=== PATIENT | male | born 1945 | race Caucasian/White ===

== ENCOUNTER 2017-07-26 06:29 | Day surgery (SDC) | payer MEDICARE, BC ==
[~2017-07-26] VITALS: Ht 188 cm; Wt 122.0 kg
[~2017-07-26 06:29] MED LIST: ALLO300 PO; AMLO10 PO; BUME1 PO; BYDUREON2 MG; CARV6.25 PO; CEPH500 PO; CLON.1 PO; Coreg12.5 MG PO; DIPH50 PO; ELIQUIS5 MG PO; ENTRESTO 24 MG1 EACH PO; FAMO20 PO; HYDCHL25 PO; Humalog Mi100 UNIT/5; METF500C PO; PIOG15 PO; POTCHL20ER PO; Pravastatin Sod40 MG PO; RAMI5 PO; TERB250; TRAM50 PO
== END 2017-07-26 14:00 | disposition home or self-care (01) ==
LOC: MHTC 06:29
PROC: 4A023N7 Measurement of Cardiac Sampling and Pressure, Left Heart, Percutaneous Approach (ICD-10-PCS; principal; 2017-07-26)
PROC: B211YZZ Fluoroscopy of Multiple Coronary Arteries using Other Contrast (ICD-10-PCS; principal; 2017-07-26)
DX: I25.10 Atherosclerotic heart disease of native coronary artery without angina pectoris (principal); I42.0 Dilated cardiomyopathy; I48.2 Chronic atrial fibrillation; E78.5 Hyperlipidemia, unspecified; G47.33 Obstructive sleep apnea (adult) (pediatric); E11.22 Type 2 diabetes mellitus with diabetic chronic kidney disease; I13.0 Hypertensive heart and chronic kidney disease with heart failure and stage 1 through stage 4 chronic kidney disease, or unspecified chronic kidney disease; N18.9 Chronic kidney disease, unspecified; I50.9 Heart failure, unspecified
CPT/HCPCS: 82947; 93458; 99152; 99153; C1769; C1894; J1200; J1644; J2250; J3010; J7030; Q9967

== ENCOUNTER 2017-08-16 11:50 | Day surgery (SDC) | payer MEDICARE, BC ==
[~2017-08-16] VITALS: Ht 188 cm; Wt 127.0 kg
[2017-08-16 13:05] LABS: BASOPHILS ABSOLUTE AUTO 0.04 K/mm3 (0.00-0.23); BASOPHILS PERCENT AUTO 1 % (0-2); EOSINOPHILS ABSOLUTE AUTO 0.13 K/mm3 (0.00-0.68); EOSINOPHILS PERCENT AUTO 2 % (0-6); Hematocrit 48.6 % (37.0-53.0); Hemoglobin 15.4 g/dL (13.5-17.5); IMMATURE GRAN ABSOLUTE AUTO 0.04 K/mm3 (0.00-0.10); IMMATURE GRAN PERCENT AUTO 1 % (0-1); LYMPHOCYTES ABSOLUTE AUTO 1.74 K/mm3 (0.84-5.20); LYMPHOCYTES PERCENT AUTO 22 % (21-46); MONOCYTES ABSOLUTE AUTO 0.74 K/mm3 (0.16-1.47); MONOCYTES PERCENT AUTO 9 % (4-13); Mean Corpuscular HGB 29.7 pg (26.0-34.0); Mean Corpuscular HGB Conc 31.7 g/dL (31.5-36.5); Mean Corpuscular Volume 94 fL (80-100); Mean Platelet Volume 12.3 fL (9.1-12.4); NEUTROPHILS ABSOLUTE AUTO 5.41 K/mm3 (1.96-9.15); NEUTROPHILS PERCENT AUTO 67 % (41-73); Platelet Count 144 K/mm3 (150-400); RDW Standard Deviation 44.8 fL (35.1-46.3); Red Blood Cell Count 5.19 M/mm3 (4.30-5.90)
[2017-08-16] MEDS ORDERED: SPIR25 PO (13:14)
[2017-08-16 13:31] LABS: Anion Gap 6 mmol/L (6-16); Blood Urea Nitrogen 26 mg/dL (8-24); Bun/Creatinine Ratio 23.4 (12.0-20.0); CO2, Blood 32 mmol/L (21-32); Calcium, Blood 9.1 mg/dL (8.5-10.1); Chloride, Blood 104 mmol/L (98-108); Creatinine, Blood 1.11 mg/dL (0.60-1.20); Glomerular Filtration Rate >60 (60-); Glucose, Blood 74 mg/dL (70-99); Potassium, Blood 4.3 mmol/L (3.5-5.5); Sodium, Blood 142 mmol/L (136-145)
[2017-08-16] MEDS ORDERED: HYDR1TAB94 PO (16:10)
== END 2017-08-16 16:30 | disposition home or self-care (01) ==
LOC: MHTC 11:50
PROVIDERS: Internal Medicine Clinical Cardiac Electrophysiology
PROC: 02HK3KZ Insertion of Defibrillator Lead into Right Ventricle, Percutaneous Approach (ICD-10-PCS; principal; 2017-08-16)
PROC: 0JH608Z Insertion of Defibrillator Generator into Chest Subcutaneous Tissue and Fascia, Open Approach (ICD-10-PCS; principal; 2017-08-16)
DX: I42.0 Dilated cardiomyopathy (principal); I50.9 Heart failure, unspecified; I11.0 Hypertensive heart disease with heart failure; E11.22 Type 2 diabetes mellitus with diabetic chronic kidney disease; I13.0 Hypertensive heart and chronic kidney disease with heart failure and stage 1 through stage 4 chronic kidney disease, or unspecified chronic kidney disease; N18.9 Chronic kidney disease, unspecified; G47.33 Obstructive sleep apnea (adult) (pediatric); M10.9 Gout, unspecified; I48.1 Persistent atrial fibrillation; Z79.84 Long term (current) use of oral hypoglycemic drugs; Z79.4 Long term (current) use of insulin; Z79.899 Other long term (current) drug therapy; Z79.01 Long term (current) use of anticoagulants
CPT/HCPCS: 33249; 36415; 71046; 80048; 82947; 85025; 99152; 99153; C1722; C1777; J0690; J1200; J1644; J2250; J2405; J3010; J7030; J7040; Q9967

== ENCOUNTER 2018-07-10 17:31 | Emergency (ER) | payer MEDICARE, BC ==
[~2018-07-10] VITALS: Ht 188 cm; Wt 136.1 kg
[~2018-07-10 17:31] MED LIST changes: -BYDUREON2 MG; +BYDUREON2 MG INJ; +HYDR1TAB94 PO; +SPIR25 PO
[2018-07-10 18:42] LABS: BASOPHILS ABSOLUTE AUTO 0.03 K/mm3 (0.00-0.23); BASOPHILS PERCENT AUTO 0 % (0-2); EOSINOPHILS ABSOLUTE AUTO 0.13 K/mm3 (0.00-0.68); EOSINOPHILS PERCENT AUTO 2 % (0-6); Hematocrit 39.2 % (37.0-53.0); Hemoglobin 12.6 g/dL (13.5-17.5); IMMATURE GRAN ABSOLUTE AUTO 0.05 K/mm3 (0.00-0.10); IMMATURE GRAN PERCENT AUTO 1 % (0-1); LYMPHOCYTES ABSOLUTE AUTO 1.27 K/mm3 (0.84-5.20); LYMPHOCYTES PERCENT AUTO 15 % (21-46); MONOCYTES ABSOLUTE AUTO 0.66 K/mm3 (0.16-1.47); MONOCYTES PERCENT AUTO 8 % (4-13); Mean Corpuscular HGB 30.5 pg (26.0-34.0); Mean Corpuscular HGB Conc 32.1 g/dL (31.5-36.5); Mean Corpuscular Volume 95 fL (80-100); Mean Platelet Volume 11.6 fL (9.1-12.4); NEUTROPHILS ABSOLUTE AUTO 6.33 K/mm3 (1.96-9.15); NEUTROPHILS PERCENT AUTO 75 % (41-73); Platelet Count 212 K/mm3 (150-400); RDW Coefficient Variation 12.6 % (11.7-14.2); RDW Standard Deviation 43.8 fL (35.1-46.3); Red Blood Cell Count 4.13 M/mm3 (4.30-5.90); White Blood Cell Count 8.47 K/mm3 (4.00-11.30)
[2018-07-10 19:00] LABS: Alanine Aminotransfer (ALT/SGP 14 U/L (12-78); Albumin, Blood 3.2 g/dL (3.4-5.0); Albumin/Globulin Ratio 0.8 (0.8-1.8); Alk Phos 81 U/L (50-136); Anion Gap 4 mmol/L (6-16); Aspartate Aminotrans (AST/SGOT 15 U/L (12-37); Blood Urea Nitrogen 21 mg/dL (8-24); Bun/Creatinine Ratio 19.4 (12.0-20.0); CO2, Blood 31 mmol/L (21-32); Calcium, Blood 8.6 mg/dL (8.5-10.1); Chloride, Blood 103 mmol/L (98-108); Creatinine, Blood 1.08 mg/dL (0.60-1.20); Globulin, Blood 3.9 g/dL (2.2-4.0); Glomerular Filtration Rate >60 (60-); Glucose, Blood 184 mg/dL (70-99); Potassium, Blood 4.9 mmol/L (3.5-5.5); Sodium, Blood 138 mmol/L (136-145); Total Protein, Blood 7.1 g/dL (6.4-8.2)
[2018-07-10 20:21] LABS: Source, Urine Clean Catch
[2018-07-10 20:31] LABS: Appearance, Urine Clear (Clear); Bilirubin, Urine Neg (Neg); Blood, Urine Neg (Neg); Color, Urine Yellow (P-Yellow); Glucose Qualitative, Urine Neg (Neg); Ketones, Urine Neg (Neg); Leukocyte Esterase, Urine 1+ (Neg); Nitrite, Urine Neg (Neg); Protein, Urine 1+ (Neg); Urobilinogen, Urine 1+ (Normal)
[2018-07-10 20:43] LABS: Bacteria Rare /hpf; Red Blood Cells, Urine Not Seen /hpf (0-2); Squamous Epithelial Cells Rare /hpf (Few); White Blood Cells, Urine 0-2 /hpf (0-5)
[2018-07-10] MEDS ORDERED: BACL10 PO (21:06)
[2018-07-10] MEDS ORDERED: HYDR1TAB94 PO (21:06)
== END 2018-07-10 22:11 | disposition home or self-care (01) ==
LOC: ER 17:31
PROVIDERS: Physician Assistant
DX: R82.998 Other abnormal findings in urine (principal); Z53.33 Arthroscopic surgical procedure converted to open procedure; Z79.899 Other long term (current) drug therapy; Z79.4 Long term (current) use of insulin; E11.9 Type 2 diabetes mellitus without complications; I10 Essential (primary) hypertension; I48.91 Unspecified atrial fibrillation
CPT/HCPCS: 36415; 80053; 81001; 83690; 85025; 87086; 99283

== ENCOUNTER 2018-07-12 09:17 | Emergency (ER) | payer MEDICARE, BC ==
[~2018-07-12] VITALS: Ht 188 cm; Wt 136.1 kg
[~2018-07-12 09:17] MED LIST changes: +BACL10 PO
[2018-07-12 10:01] LABS: BASOPHILS ABSOLUTE AUTO 0.03 K/mm3 (0.00-0.23); BASOPHILS PERCENT AUTO 0 % (0-2); EOSINOPHILS PERCENT AUTO 1 % (0-6); Hemoglobin 11.8 g/dL (13.5-17.5); IMMATURE GRAN ABSOLUTE AUTO 0.07 K/mm3 (0.00-0.10); IMMATURE GRAN PERCENT AUTO 1 % (0-1); LYMPHOCYTES PERCENT AUTO 11 % (21-46); MONOCYTES ABSOLUTE AUTO 0.54 K/mm3 (0.16-1.47); MONOCYTES PERCENT AUTO 6 % (4-13); Mean Corpuscular HGB 30.4 pg (26.0-34.0); Mean Corpuscular HGB Conc 31.9 g/dL (31.5-36.5); Mean Corpuscular Volume 95 fL (80-100); Mean Platelet Volume 11.7 fL (9.1-12.4); NEUTROPHILS ABSOLUTE AUTO 7.28 K/mm3 (1.96-9.15); NEUTROPHILS PERCENT AUTO 81 % (41-73); Platelet Count 206 K/mm3 (150-400); RDW Coefficient Variation 12.8 % (11.7-14.2); RDW Standard Deviation 43.8 fL (35.1-46.3); Red Blood Cell Count 3.88 M/mm3 (4.30-5.90); White Blood Cell Count 9.02 K/mm3 (4.00-11.30)
[2018-07-12 10:28] LABS: Albumin/Globulin Ratio 0.9 (0.8-1.8); Bilirubin, Total 1.1 mg/dL (0.1-1.0); Bun/Creatinine Ratio 18.5 (12.0-20.0); Calcium, Blood 8.5 mg/dL (8.5-10.1); Creatinine, Blood 1.51 mg/dL (0.60-1.20); Globulin, Blood 3.3 g/dL (2.2-4.0); Potassium, Blood 4.7 mmol/L (3.5-5.5); Total Protein, Blood 6.3 g/dL (6.4-8.2)
== END 2018-07-12 11:15 | disposition home or self-care (01) ==
LOC: ER 09:17
PROVIDERS: Emergency Medicine
DX: R42 Dizziness and giddiness (principal); E86.0 Dehydration; R11.0 Nausea; N28.9 Disorder of kidney and ureter, unspecified; T40.605A Adverse effect of unspecified narcotics, initial encounter; T42.8X5A Adverse effect of antiparkinsonism drugs and other central muscle-tone depressants, initial encounter; E11.9 Type 2 diabetes mellitus without complications; I10 Essential (primary) hypertension; I48.91 Unspecified atrial fibrillation; Z79.899 Other long term (current) drug therapy; Z79.84 Long term (current) use of oral hypoglycemic drugs; Z79.4 Long term (current) use of insulin
CPT/HCPCS: 36415; 80053; 83690; 84484; 85025; 93005; 93010; 96361; 96374; 99284-25; J2405; J7030

== ENCOUNTER 2018-12-02 11:35 | Observation (INO) | payer MEDICARE, BC ==
[~2018-12-02] VITALS: Ht 188 cm; Wt 127.0 kg
[~2018-12-02 11:35] MED LIST changes: -BUME1 PO; +BUME2 PO; -BYDUREON2 MG INJ; +CARV25 PO; -CARV6.25 PO; -ENTRESTO 24 MG1 EACH PO; +ENTRESTO 97 MG1 EACH PO; -Humalog Mi100 UNIT/5; +Humalog Mi100 UNIT/5 SC; +METF500 PO; -METF500C PO
[2018-12-02 12:06] LABS: BASOPHILS ABSOLUTE AUTO 0.03 K/mm3 (0.00-0.23); BASOPHILS PERCENT AUTO 0 % (0-2); EOSINOPHILS ABSOLUTE AUTO 0.17 K/mm3 (0.00-0.68); EOSINOPHILS PERCENT AUTO 2 % (0-6); Hematocrit 46.1 % (37.0-53.0); Hemoglobin 15.2 g/dL (13.5-17.5); IMMATURE GRAN ABSOLUTE AUTO 0.09 K/mm3 (0.00-0.10); IMMATURE GRAN PERCENT AUTO 1 % (0-1); LYMPHOCYTES ABSOLUTE AUTO 1.71 K/mm3 (0.84-5.20); LYMPHOCYTES PERCENT AUTO 15 % (21-46); MONOCYTES ABSOLUTE AUTO 0.97 K/mm3 (0.16-1.47); MONOCYTES PERCENT AUTO 9 % (4-13); Mean Corpuscular HGB 29.3 pg (26.0-34.0); Mean Corpuscular Volume 89 fL (80-100); NEUTROPHILS ABSOLUTE AUTO 8.45 K/mm3 (1.96-9.15); NEUTROPHILS PERCENT AUTO 74 % (41-73); Platelet Count 158 K/mm3 (150-400); RDW Standard Deviation 45.3 fL (35.1-46.3); Red Blood Cell Count 5.19 M/mm3 (4.30-5.90); White Blood Cell Count 11.42 K/mm3 (4.00-11.30)
[2018-12-02 12:14] LABS: Mean Platelet Volume 13.1 fL (9.1-12.4)
[2018-12-02 12:19] LABS: Alanine Aminotransfer (ALT/SGP 17 U/L (12-78); Albumin, Blood 3.5 g/dL (3.4-5.0); Albumin/Globulin Ratio 1.1 (0.8-1.8); Alk Phos 115 U/L (50-136); Anion Gap 8 mmol/L (6-16); Aspartate Aminotrans (AST/SGOT 9 U/L (12-37); Blood Urea Nitrogen 80 mg/dL (8-24); Bun/Creatinine Ratio 30.8 (12.0-20.0); CO2, Blood 39 mmol/L (21-32); Calcium, Blood 8.4 mg/dL (8.5-10.1); Chloride, Blood 87 mmol/L (98-108); Globulin, Blood 3.3 g/dL (2.2-4.0); Glomerular Filtration Rate 26 (60-); Glucose, Blood 308 mg/dL (70-99); Potassium, Blood 3.1 mmol/L (3.5-5.5); Sodium, Blood 134 mmol/L (136-145); Total Protein, Blood 6.8 g/dL (6.4-8.2); Troponin I <0.015 ng/mL (0.000-0.040)
[2018-12-02] MEDS ORDERED: METO2.5 PO (14:45)
[2018-12-02] MEDS ORDERED: BYDUREON B2 MG/0.85 SC (14:55)
[2018-12-02] MEDS ORDERED: Vitamin D2000 UNIT PO (16:18)
[2018-12-02] MEDS ORDERED: CENTRUM SILVER1 EAC4 PO (16:18)
[2018-12-02] MEDS ORDERED: ASPI325EC PO (16:19)
[2018-12-02 18:18] LABS: Magnesium, Blood 2.5 mg/dL (1.6-2.4); Potassium, Blood 3.4 mmol/L (3.5-5.5)
--- NOTE | 2018-12-02 19:27 | NUR ---
SHIFT SUMMARY PT HAS HAD NO COMPLAINTS THIS SHIFT. PT HAS PRODUCTIVE COUGH AND ON 2L OXYGEN VIA NC. PT AMBULATORY IN ROOM. NO ACUTE DISTRESS. REPORT GIVEN TO PJ ROSADO. CALL LIGHT IN REACH.
[2018-12-02 19:43] LABS: Adenovirus Not Detected (NOT DETECT); Bordetella pertussis Not Detected (NOT DETECT); Chlamydophila pneumoniae Not Detected (NOT DETECT); Coronavirus 229E Not Detected (NOT DETECT); Coronavirus HKU1 Not Detected (NOT DETECT); Coronavirus NL63 Not Detected (NOT DETECT); Coronavirus OC43 Not Detected (NOT DETECT); Human Metapneumovirus Not Detected (NOT DETECT); Human Rhinovirus/Enterovirus Not Detected (NOT DETECT); Influenza A Not Detected (NOT DETECT); Influenza A/2009-H1 Not Detected (NOT DETECT); Influenza A/H1 Not Detected (NOT DETECT); Influenza A/H3 Not Detected (NOT DETECT); Influenza B Not Detected (NOT DETECT); Mycoplasma pneumoniae Not Detected (NOT DETECT); Parainfluenza Virus 1 Not Detected (NOT DETECT); Parainfluenza Virus 2 Not Detected (NOT DETECT); Parainfluenza Virus 3 Not Detected (NOT DETECT); Parainfluenza Virus 4 Not Detected (NOT DETECT); Respiratory Syncytial Virus Not Detected (NOT DETECT)
[2018-12-02] MEDS ORDERED: BENZ100A PO (20:09)
[2018-12-02] MEDS ORDERED: METPRE4DP PO (20:10)
[2018-12-03 05:09] LABS: Hematocrit 49.6 % (37.0-53.0); Hemoglobin 15.7 g/dL (13.5-17.5)
[2018-12-03 05:37] LABS: Magnesium, Blood 2.8 mg/dL (1.6-2.4)
--- NOTE | 2018-12-03 05:39 | NUR ---
SHIFT SUMMARY PT STATES HE SLEPT OFF AND ON DURING THE NIGHT. OXYGEN REMAINS ON PER NC AT 2L. PT OFFERS NO C/O'S. IVF'S INFUSING PER PUMP WITHOUT DIFFICULTY. PT ALERT AND ORIENTED. NO ACUTE EVENTS OVER NIGHT, WILL CONTINUE TO MONITOR.
[2018-12-03 05:40] LABS: Albumin, Blood 3.5 g/dL (3.4-5.0); Anion Gap 4 mmol/L (6-16); Blood Urea Nitrogen 70 mg/dL (8-24); CO2, Blood 42 mmol/L (21-32); Calcium, Blood 8.8 mg/dL (8.5-10.1); Chloride, Blood 93 mmol/L (98-108); Creatinine, Blood 1.84 mg/dL (0.60-1.20); Glomerular Filtration Rate 38 (60-); Glucose, Blood 103 mg/dL (70-99); Phosphorus, Blood 4.8 mg/dL (2.5-4.9); Potassium, Blood 3.1 mmol/L (3.5-5.5); Sodium, Blood 139 mmol/L (136-145)
--- NOTE | 2018-12-03 14:31 | NUR ---
D/C INSTRUCTIONS PROVIDED AND EXPLAINED TO PT. IV AND TELE REMOVED. PT D/C VIA AMBULATION WITH SPOUSE.
== END 2018-12-03 14:00 | disposition home or self-care (01) ==
LOC: ER 11:35 → MEDS 11:36 → ER 14:38 → MEDS 14:38
PROVIDERS: Emergency Medicine; Internal Medicine Nephrology; ADMIT Family Medicine
DX: N17.9 Acute kidney failure, unspecified (principal); I13.0 Hypertensive heart and chronic kidney disease with heart failure and stage 1 through stage 4 chronic kidney disease, or unspecified chronic kidney disease; I50.42 Chronic combined systolic (congestive) and diastolic (congestive) heart failure; E11.22 Type 2 diabetes mellitus with diabetic chronic kidney disease; N18.3 Chronic kidney disease, stage 3 (moderate); I95.9 Hypotension, unspecified; E86.9 Volume depletion, unspecified; E87.6 Hypokalemia; M19.90 Unspecified osteoarthritis, unspecified site; E83.41 Hypermagnesemia; G47.30 Sleep apnea, unspecified; E78.5 Hyperlipidemia, unspecified; E87.1 Hypo-osmolality and hyponatremia; E11.65 Type 2 diabetes mellitus with hyperglycemia; E66.9 Obesity, unspecified; D72.829 Elevated white blood cell count, unspecified; M10.9 Gout, unspecified
CPT/HCPCS: 36415; 71046; 74150; 76770; 80053; 80069; 82947; 83735; 83880; 84132; 84484; 85014; 85018; 85025; 87070; 87077; 87185; 87205; 87486; 87581; 87633; 87798; 93005; 93010; 94760; 96360; 96361; 96372-59; 99285-25; G0378; J1644; J1815; J3480; J7030

== ENCOUNTER 2021-11-15 11:59 | Observation (INO) | payer MEDICARE, BC ==
[~2021-11-15] VITALS: Ht 188 cm; Wt 120.9 kg
[~2021-11-15 11:59] MED LIST changes: +ASPI325EC PO; +BENZ100A PO; +BYDUREON B2 MG/0.85 SC; +CENTRUM SILVER1 EAC2 PO; +METO2.5 PO; +METPRE4DP PO; +Vitamin D2000 UNIT PO
[2021-11-15 12:29] LABS: BASOPHILS ABSOLUTE AUTO 0.03 K/mm3 (0.00-0.23); BASOPHILS PERCENT AUTO 0 % (0-2); EOSINOPHILS ABSOLUTE AUTO 0.04 K/mm3 (0.00-0.68); EOSINOPHILS PERCENT AUTO 0 % (0-6); Hematocrit 52.8 % (37.0-53.0); Hemoglobin 17.5 g/dL (13.5-17.5); IMMATURE GRAN ABSOLUTE AUTO 0.06 K/mm3 (0.00-0.10); IMMATURE GRAN PERCENT AUTO 1 % (0-1); LYMPHOCYTES PERCENT AUTO 13 % (21-46); MONOCYTES ABSOLUTE AUTO 0.45 K/mm3 (0.16-1.47); MONOCYTES PERCENT AUTO 5 % (4-13); Mean Corpuscular HGB 30.4 pg (26.0-34.0); Mean Corpuscular HGB Conc 33.1 g/dL (31.5-36.5); Mean Corpuscular Volume 92 fL (80-100); Mean Platelet Volume 12.8 fL (9.1-12.4); NEUTROPHILS ABSOLUTE AUTO 7.26 K/mm3 (1.96-9.15); NEUTROPHILS PERCENT AUTO 80 % (41-73); Platelet Count 132 K/mm3 (150-400); RDW Coefficient Variation 13.1 % (11.7-14.2); RDW Standard Deviation 43.9 fL (35.1-46.3); Red Blood Cell Count 5.76 M/mm3 (4.30-5.90); White Blood Cell Count 9.04 K/mm3 (4.00-11.30)
[2021-11-15 13:02] LABS: Albumin, Blood 3.4 g/dL (3.4-5.0); Bilirubin, Total 1.3 mg/dL (0.1-1.0); Bun/Creatinine Ratio 16.8 (12.0-20.0); Calcium, Blood 8.8 mg/dL (8.5-10.1); Creatinine, Blood 1.25 mg/dL (0.60-1.20); Globulin, Blood 3.3 g/dL (2.2-4.0); Potassium, Blood 3.4 mmol/L (3.5-5.5); Total Protein, Blood 6.7 g/dL (6.4-8.2)
--- NOTE | 2021-11-15 16:57 | NUR ---
Echocardiogram completed.
--- NOTE | 2021-11-15 19:22 | NUR ---
Patient admitted from the er this evening. He is accompanied by his . He'd been experiencing vertigo x 3 days and had left facial droop. CT shows no acute event. They are looking at possible subacute bleed. Echo was done in the ER right before transfer to the floor. Patient has a history of diabetes and has blood sugar ac and hs. He is alert and orientated. Patient has had N &V, with just a little return in the emesis bag. weight was 120.9kg at admit. Over the past three months he has intentionally lost weight. He does have a history of skin cancer with multiple melanoma removed. Medications will have to be reconcilled tomorrow, after a new list is faxed from the patients pharmacy. Patient did not take long acting insulin today at 1600. He states he normally doesn't use this, and his sugar was 160- covered with one unit of sliding scale regular, but with the patients nausea and not eating much, the long acting was held.
[2021-11-15] MEDS ORDERED: BYDUREON B2 MG/0.81 SC (20:18)
[2021-11-15] MEDS ORDERED: METO2.5 PO (20:19)
[2021-11-15] MEDS ORDERED: BUMETANIDE2 M6 PO (20:20)
[2021-11-15] MEDS ORDERED: METF500 PO (20:20)
[2021-11-15] MEDS ORDERED: JARDIANCE10 MG PO (20:21)
--- NOTE | 2021-11-16 03:51 | NUR ---
SHIFT SUMMARY REPORTS DIZZINESS WITH HEAD MOVEMENT TO THE SIDE BEGINNING OF SHIFT. SCHEDULE ANTIVERT 25 MG GIVEN PER EMAR. AXOX 4 AND ONE ASSIST TO BSC. ON TELEMETRY NSR 93. NS INFUSED @ 75mL/HR X ONE 500 mL BAG. DENIES PAIN, SOB, AND N/V. PIV REMAINS INTACT. VSS/AFEBRILE. ABLE TO SLEEP MOST OF THE SHIFT. CALL LIGHT IN REACH. BED IN LOWEST POSITION. WILL CONTINUE TO MONITOR UNTIL DAY SHIFT NURSE ASSUMES CARE.
[2021-11-16 09:38] LABS: Bun/Creatinine Ratio 18.2 (12.0-20.0); Calcium, Blood 8.8 mg/dL (8.5-10.1); Creatinine, Blood 1.1 mg/dL (0.60-1.20); Potassium, Blood 4.2 mmol/L (3.5-5.5)
[2021-11-16] MEDS ORDERED: SPIR25 PO (11:05)
[2021-11-16] MEDS ORDERED: HUMALOG MI100 UNIT/2 SC ×2 (11:08)
[2021-11-16] MEDS ORDERED: MECL25 PO (14:07)
--- NOTE | 2021-11-16 14:27 | NUR ---
PATIENT D/C'D TO HOME WITH HOME HEALTH. DC INSTRUCTIONS AND EDUCATION DISCUSSED WITH PATIENT AND COPY PROVIDED. PATIENT DENIES ANY FURTHER QUESTIONS OR CONCERNS. APPOINTMENT ALREADY SCHEULED FOR NEXT WEEK WITH DR. MISTRY. RX MEDICATIONS SENT TO [facility].
== END 2021-11-16 14:24 | disposition home health service (06) ==
LOC: ER 11:59 → MEDS 12:00
PROVIDERS: Student in an Organized Health Care Education/Training Program; ADMIT Hospitalist
DX: I63.233 Cerebral infarction due to unspecified occlusion or stenosis of bilateral carotid arteries (principal); E11.22 Type 2 diabetes mellitus with diabetic chronic kidney disease; I13.10 Hypertensive heart and chronic kidney disease without heart failure, with stage 1 through stage 4 chronic kidney disease, or unspecified chronic kidney disease; I48.20 Chronic atrial fibrillation, unspecified; I50.22 Chronic systolic (congestive) heart failure; Z79.4 Long term (current) use of insulin; N18.31 Chronic kidney disease, stage 3a; Z79.82 Long term (current) use of aspirin; Z79.01 Long term (current) use of anticoagulants; Z95.0 Presence of cardiac pacemaker; G47.33 Obstructive sleep apnea (adult) (pediatric); Z96.653 Presence of artificial knee joint, bilateral; I08.2 Rheumatic disorders of both aortic and tricuspid valves; I44.7 Left bundle-branch block, unspecified
CPT/HCPCS: 36415; 70450; 80048; 80053; 82607; 82947; 84484; 85025; 93005; 93010; 93306; 93880; 94760; 96361; 96374; 96376; 97110; 97116; 97162; 97165; 97535; 99285-25; A9270; G0378; J1815; J2405; J7040

== ENCOUNTER 2023-01-10 10:26 | Emergency (ER) | payer MEDICARE, BC ==
[~2023-01-10] VITALS: Ht 190.5 cm; Wt 102.1 kg
[~2023-01-10 10:26] MED LIST changes: +BUMETANIDE2 M6 PO; +BYDUREON B2 MG/0.81 SC; +HUMALOG MI100 UNIT/2 SC; +JARDIANCE10 MG PO; +MECL25 PO
[2023-01-10 11:13] LABS: BASOPHILS ABSOLUTE AUTO 0.03 K/mm3 (0.00-0.23); BASOPHILS PERCENT AUTO 0 % (0-2); EOSINOPHILS ABSOLUTE AUTO 0.11 K/mm3 (0.00-0.68); EOSINOPHILS PERCENT AUTO 1 % (0-6); Hematocrit 41.7 % (37.0-53.0); Hemoglobin 13.8 g/dL (13.5-17.5); IMMATURE GRAN ABSOLUTE AUTO 0.04 K/mm3 (0.00-0.10); IMMATURE GRAN PERCENT AUTO 1 % (0-1); LYMPHOCYTES PERCENT AUTO 13 % (21-46); MONOCYTES ABSOLUTE AUTO 0.46 K/mm3 (0.16-1.47); MONOCYTES PERCENT AUTO 5 % (4-13); Mean Corpuscular HGB 30.2 pg (26.0-34.0); Mean Corpuscular HGB Conc 33.1 g/dL (31.5-36.5); Mean Corpuscular Volume 91 fL (80-100); Mean Platelet Volume 12.3 fL (9.1-12.4); NEUTROPHILS ABSOLUTE AUTO 6.79 K/mm3 (1.96-9.15); NEUTROPHILS PERCENT AUTO 80 % (41-73); Platelet Count 171 K/mm3 (150-400); RDW Coefficient Variation 12.3 % (11.7-14.2); Red Blood Cell Count 4.57 M/mm3 (4.30-5.90); White Blood Cell Count 8.53 K/mm3 (4.00-11.30)
[2023-01-10 11:41] LABS: Albumin, Blood 3.3 g/dL (3.4-5.0); Albumin/Globulin Ratio 0.9 (0.8-1.8); Bilirubin, Total 0.6 mg/dL (0.1-1.0); Calcium, Blood 9.3 mg/dL (8.5-10.1); Creatinine, Blood 1.97 mg/dL (0.60-1.20); Globulin, Blood 3.5 g/dL (2.2-4.0); Total Protein, Blood 6.8 g/dL (6.4-8.2)
[2023-01-10] MEDS ORDERED: SPIR25 PO (12:59)
[2023-01-10] MEDS ORDERED: FLUO10 PO (13:00)
[2023-01-10] MEDS ORDERED: SINEMET 25-1001 EAC1 PO (13:04)
[2023-01-10] MEDS ORDERED: CARAC30 G2 TOP (13:04)
[2023-01-10 13:45] VITALS: BP 121/79
== END 2023-01-10 14:30 | disposition home or self-care (01) ==
LOC: ER 10:26
PROVIDERS: Physician Assistant
DX: N28.9 Disorder of kidney and ureter, unspecified (principal); E86.0 Dehydration; E11.9 Type 2 diabetes mellitus without complications; I11.0 Hypertensive heart disease with heart failure; I50.9 Heart failure, unspecified; Z79.01 Long term (current) use of anticoagulants; Z79.899 Other long term (current) drug therapy; Z79.82 Long term (current) use of aspirin; Z79.4 Long term (current) use of insulin; Z96.651 Presence of right artificial knee joint
CPT/HCPCS: 80053; 85025; 96360; 99284-25; J7030

== ENCOUNTER 2023-01-13 01:24 | Day surgery (SDC) | payer MEDICARE, BC ==
[~2023-01-13 01:24] MED LIST changes: +CARAC30 G2 TOP; +FLUO10 PO; +SINEMET 25-1001 EAC1 PO
[2023-01-13 14:46] VITALS: BP 95/74
[2023-01-13 17:28] VITALS: BP 114/80
== END 2023-01-13 17:29 | disposition home or self-care (01) ==
LOC: ATC 01:24
DX: N17.9 Acute kidney failure, unspecified (principal); E86.0 Dehydration; E11.9 Type 2 diabetes mellitus without complications; Z79.4 Long term (current) use of insulin; Z79.899 Other long term (current) drug therapy
CPT/HCPCS: 96360; 96361; J7040

== ENCOUNTER 2023-02-18 12:36 | Inpatient (IN) | payer OTHER, MEDICARE, BC ==
[~2023-02-18] VITALS: Ht 188 cm; Wt 99.8 kg
[2023-02-18 13:22] LABS: BASOPHILS ABSOLUTE AUTO 0.02 K/mm3 (0.00-0.23); BASOPHILS PERCENT AUTO 0 % (0-2); EOSINOPHILS ABSOLUTE AUTO 0.01 K/mm3 (0.00-0.68); EOSINOPHILS PERCENT AUTO 0 % (0-6); Hematocrit 34.7 % (37.0-53.0); Hemoglobin 11.4 g/dL (13.5-17.5); IMMATURE GRAN ABSOLUTE AUTO 0.07 K/mm3 (0.00-0.10); IMMATURE GRAN PERCENT AUTO 1 % (0-1); LYMPHOCYTES ABSOLUTE AUTO 0.77 K/mm3 (0.84-5.20); LYMPHOCYTES PERCENT AUTO 7 % (21-46); MONOCYTES ABSOLUTE AUTO 0.74 K/mm3 (0.16-1.47); MONOCYTES PERCENT AUTO 7 % (4-13); Mean Corpuscular HGB 29.8 pg (26.0-34.0); Mean Corpuscular HGB Conc 32.9 g/dL (31.5-36.5); Mean Corpuscular Volume 91 fL (80-100); Mean Platelet Volume 12.8 fL (9.1-12.4); NEUTROPHILS ABSOLUTE AUTO 9.11 K/mm3 (1.96-9.15); NEUTROPHILS PERCENT AUTO 85 % (41-73); Platelet Count 149 K/mm3 (150-400); RDW Coefficient Variation 11.9 % (11.7-14.2); RDW Standard Deviation 39.8 fL (35.1-46.3); Red Blood Cell Count 3.83 M/mm3 (4.30-5.90); White Blood Cell Count 10.72 K/mm3 (4.00-11.30)
[2023-02-18 13:36] LABS: Bun/Creatinine Ratio 17.2 (12.0-20.0); Calcium, Blood 8.2 mg/dL (8.5-10.1); Creatinine, Blood 1.92 mg/dL (0.60-1.20); Potassium, Blood 3.8 mmol/L (3.5-5.5)
[2023-02-18] MEDS ORDERED: BUME2 PO (13:50)
[2023-02-18] MEDS ORDERED: SPIR25 PO (13:51)
[2023-02-18] MEDS ORDERED: CATAPRES0.1 MG PO (13:57)
[2023-02-18] MEDS ORDERED: JARDIANCE25 MG PO (13:57)
[2023-02-18 15:08] VITALS: BP 139/98
--- NOTE | 2023-02-18 15:15 | NUR ---
ARRIVAL TO UNIT PT ARRIVED TO UNIT FROM ER TO ROOM 214. TRANSFERED WITH SLIDE SHEET. PLACED IN BUCKS TRACTION AT 5LBS PER ER ORDERS. PT TOLERATED ROLLING AND REPOSITIONING WITH INCREASE TO PAIN. MEDICATED PER EMAR. R HIP VERY SWOLLEN AND EXTERNALLY ROTATED. SKIN TEARS TO BILATERAL ELBOWS, PATIENT REPORTS FROM ATTEMPTING TO CRAWL AFTER FALLING. BILATERAL LOWER EXTREMETIES COOL TO TOUCH WITH FAINT PULSES. DARK COLORATION AROUND SHINS. PT STATES BASELINE FOR HIM. PT [id number], EDUCATED ON PLAN TO BE NPO AT THIS TIME. DR. CARTAGENA NOTIFIED OF PATIENTS ARRIVAL TO ROOM.
--- NOTE | 2023-02-18 15:33 | NUR ---
PT REPORTS NO PAIN AT THIS TIME WITH TRACTION AND FENTANYL GIVEN PER EMAR. CURRENTLY RESTING IN BED. DENIES FURTHER NEEDS AT THIS TIME.
--- NOTE | 2023-02-18 16:49 | NUR ---
SPOUSE GENO CALLED FOR AN UPDATE. SHE STATES PATIENT HAS RECENTLY LOST ABOUT 80LBS SO MANY OF HIS HOME MEDICATION DOSES HAVE DECREASED. SHE PLANS TO COME TO THE HOSPITAL TOMORROW WITH AN UPDATED DOSAGE LIST. HER NUMBER IS [phone].
--- NOTE | 2023-02-18 17:23 | NUR ---
PT REPORTS PAIN MUCH BETTER SINCE GERMAN WRAP APPLIED AND TRACTION ADJUSTED. REPORTS A 4/10 AT THIS TIME WHICH HE STATES IS VERY TOLERABLE. PLAN IS FOR PATIENT TO BE NPO AT MIDNIGHT FOR SURGERY TOMORROW. CALL LIGHT PROVIDED, PT TOLERATING WATER AT THIS TIME. AWAITING DINNER TRAY.
[2023-02-18 20:00] VITALS: BP 110/68
--- NOTE | 2023-02-18 21:35 | NUR ---
ASSUMPTION OF CARE: PT ALERT AND ORIENTED X4, ABLE TO FOLLOW COMMANDS AND MAKE NEEDS KNOWN. FORGETFUL AT TIMES, POOR HISTORIAN. BP AND HR STABLE, AFEBRILE, SATS >98% ON ROOM AIR. RESPIRATIONS EVEN AND UNLABORED. RADIAL PULSES STRONG, PEDAL PULSES FAINT. PT ADMITTED FOR R. HIP FRACTURE. CURRENTLY IN BUCKS TRACTION W/ 5LB WEIGHT. PLAN FOR SURGERY IN AM, NPO AT 0000. DENIES PAIN AT THIS TIME. BED IN LOW, CALL LIGHT IN REACH.
[2023-02-19] VITALS (17 sets, daily range): BP systolic 102–149; BP diastolic 61–86
--- NOTE | 2023-02-19 00:27 | NUR ---
UPDATE/TRANSFER OF CARE NO ACUTE CHANGES SINCE PREVIOUS ADMISSION. PT WITH 8/10 PAIN IN R. FEMUR. MEDICATED PER EMAR WITH GOOD RESULTS. PT NOW RESTING QUIETY IN BED. WILL REPORT TO NATHALY Ledbetter RN
[2023-02-19 04:19] LABS: BASOPHILS ABSOLUTE AUTO 0.03 K/mm3 (0.00-0.23); BASOPHILS PERCENT AUTO 0 % (0-2); EOSINOPHILS ABSOLUTE AUTO 0.04 K/mm3 (0.00-0.68); EOSINOPHILS PERCENT AUTO 1 % (0-6); Hematocrit 32.1 % (37.0-53.0); Hemoglobin 10.6 g/dL (13.5-17.5); IMMATURE GRAN ABSOLUTE AUTO 0.06 K/mm3 (0.00-0.10); IMMATURE GRAN PERCENT AUTO 1 % (0-1); LYMPHOCYTES ABSOLUTE AUTO 1.45 K/mm3 (0.84-5.20); LYMPHOCYTES PERCENT AUTO 17 % (21-46); MONOCYTES ABSOLUTE AUTO 0.79 K/mm3 (0.16-1.47); MONOCYTES PERCENT AUTO 9 % (4-13); Mean Corpuscular HGB 30.3 pg (26.0-34.0); Mean Corpuscular Volume 92 fL (80-100); NEUTROPHILS ABSOLUTE AUTO 6.35 K/mm3 (1.96-9.15); NEUTROPHILS PERCENT AUTO 73 % (41-73); Platelet Count 145 K/mm3 (150-400); RDW Standard Deviation 40.7 fL (35.1-46.3); White Blood Cell Count 8.72 K/mm3 (4.00-11.30)
[2023-02-19 04:38] LABS: Calcium, Blood 8.4 mg/dL (8.5-10.1); Creatinine, Blood 1.89 mg/dL (0.60-1.20); Potassium, Blood 3.6 mmol/L (3.5-5.5)
--- NOTE | 2023-02-19 04:55 | NUR ---
SHIFT SUMMARY THIS RN ASSUMED CARE OF PT AT APPROX 0045. PT RESTING COMFORTABLY WITH EYES CLOSED. 5# BUCKS TRACTION IN PLACE TO RLE. PT ABLE TO WIGGLE TOES AND PPP. DENIES NEED FOR PAIN MEDICATIONS. NPO SINCE MIDNIGHT FOR PROCEDURE TODAY. USES URINAL INDEP. CALL LIGHT WITHIN REACH.
[2023-02-19] MEDS ORDERED: CARBLEV25 SL (10:47)
--- NOTE | 2023-02-19 13:35 | NUR ---
PT WENT TO DAYSURGERY
--- NOTE | 2023-02-19 13:43 | NUR ---
PT ARRIVED TO UNIT VIA GURN. TRACTION LEFT IN PLACE. VSS. PAIN 3/10 IN RIGHT HIP. ALERT AND ORIENTED. Patient confirms NPO status and agrees with scheduled surgery. Pre-Op teaching done. Pt verbalizes understanding.
--- NOTE | 2023-02-19 18:59 | NUR ---
SHIFT SUMMARY S/P R HIP NAILING, FOAM DRESSING DRY/INTACT, A&OX4/VSS/2LNC, VOIDED/URINAL, NAUSEA TREATED WITH ZOFRAN X1/HOB 30 DEGREES, IVF INFUSING PER EMAR. DENIES NEED FOR PAIN MED. WILL REPORT TO ONCOMING NOC RN.
[2023-02-20] VITALS (16 sets, daily range): BP systolic 89–114; BP diastolic 48–78
--- NOTE | 2023-02-20 04:08 | NUR ---
PTS SYSTOLIC 88.CALLED TO DR JOHNS.REVIEWED HISTORY PER H/P NS 500 ML BOLUS ORDERED.RUNNING NS AT 400 ML PER HOUR IN CONSIDERATION OF VANCO RUNNING AT 110 PER HOUR.PT ALERT,ORIENTED.VERB UNDERSTANDING OF REASON FOR FLUID BOLUS. PT HAS NOT VODIED YET AND HAS HX CKD.
[2023-02-20 05:17] LABS: BASOPHILS ABSOLUTE AUTO 0.03 K/mm3 (0.00-0.23); BASOPHILS PERCENT AUTO 0 % (0-2); EOSINOPHILS PERCENT AUTO 0 % (0-6); Hematocrit 27.2 % (37.0-53.0); Hemoglobin 8.7 g/dL (13.5-17.5); IMMATURE GRAN ABSOLUTE AUTO 0.08 K/mm3 (0.00-0.10); IMMATURE GRAN PERCENT AUTO 1 % (0-1); LYMPHOCYTES ABSOLUTE AUTO 0.82 K/mm3 (0.84-5.20); LYMPHOCYTES PERCENT AUTO 8 % (21-46); MONOCYTES ABSOLUTE AUTO 0.79 K/mm3 (0.16-1.47); MONOCYTES PERCENT AUTO 8 % (4-13); Mean Corpuscular HGB 30.3 pg (26.0-34.0); Mean Corpuscular Volume 95 fL (80-100); NEUTROPHILS ABSOLUTE AUTO 8.29 K/mm3 (1.96-9.15); NEUTROPHILS PERCENT AUTO 83 % (41-73); Platelet Count 123 K/mm3 (150-400); RDW Coefficient Variation 12.1 % (11.7-14.2); RDW Standard Deviation 42.5 fL (35.1-46.3); Red Blood Cell Count 2.87 M/mm3 (4.30-5.90); White Blood Cell Count 10.01 K/mm3 (4.00-11.30)
[2023-02-20 05:27] LABS: Albumin, Blood 2.6 g/dL (3.4-5.0); Anion Gap 9 mmol/L (6-16); Blood Urea Nitrogen 43 mg/dL (8-24); Bun/Creatinine Ratio 20.2 (12.0-20.0); CO2, Blood 25 mmol/L (21-32); Calcium, Blood 7.7 mg/dL (8.5-10.1); Chloride, Blood 104 mmol/L (98-108); Creatinine, Blood 2.13 mg/dL (0.60-1.20); Glomerular Filtration Rate 31 (60-); Glucose, Blood 296 mg/dL (70-99); Magnesium, Blood 2.1 mg/dL (1.6-2.4); Phosphorus, Blood 4.8 mg/dL (2.5-4.9); Potassium, Blood 4.5 mmol/L (3.5-5.5); Sodium, Blood 138 mmol/L (136-145)
[2023-02-20 05:35] LABS: Mean Platelet Volume 13.4 fL (9.1-12.4)
--- NOTE | 2023-02-20 07:36 | NUR ---
SUMMARY WAS ABLE TO GET SYSTOLIC ABOVE 100, BUT TRENDING BACK DOWN.PT HAS SWELLING R THIGH WITH H/H 02/18 THIS AM.PT HAS NO BLEEDING NOTED TO SURGICAL SITES.ICE TO RE THIGH.PT UPRIGHT IN BED THIS AM DRINKING COFFEE.PT HAD BLADDER SCAN 190'S WHEN BP WAS NOTED DROPPED,BUT NO VOID YET. PT VERB AT THIS TIME, HE IS STARTING TO FEEL URGE TO VOID.PT REPORTS THAT HE HAS LITTLE VOID AT HOME DUE TO CKD.WITH REPORT THIS AM, DAY RN NOTES PT HAD 100 VOID IMMEDIATE POSTOP.
--- NOTE | 2023-02-20 14:42 | NUR ---
SHIFT SUMMARY PT A&OX4, VSS/RA, MARICRUZ PO, VOIDING/URINAL, PAIN MANAGED/TRAMADAL, WORKED WITH PT/OT TODAY-ABLE TO STAND BEDSIDE BUT NOT PIVOT; PT AND DECIDED TO HAVE GURNEY TRANSPORT TO SNF(UNDERSTANDING THEY WILL PAY OUT OF POCKET FOR NONCOVERED COST). POD1 L HIP NAILING, TTWB, DRESSINGS CDI. WILL REPORT TO ONCOMING NOC RN.
--- NOTE | 2023-02-20 20:00 | NUR ---
DRESSING DR. THOMAS TO BEDSIDE FOR DESSING CHANGE. AQUACEL PLACED X3. GAUZE REMOVED, CLEANED WITH HYDROGEN PEROXIDE. INCISION SITES C/D/I.
[2023-02-21 04:35] VITALS: BP 108/69
[2023-02-21 05:05] LABS: BASOPHILS ABSOLUTE AUTO 0.02 K/mm3 (0.00-0.23); BASOPHILS PERCENT AUTO 0 % (0-2); EOSINOPHILS ABSOLUTE AUTO 0.08 K/mm3 (0.00-0.68); EOSINOPHILS PERCENT AUTO 1 % (0-6); Hematocrit 22.9 % (37.0-53.0); Hemoglobin 7.6 g/dL (13.5-17.5); IMMATURE GRAN ABSOLUTE AUTO 0.05 K/mm3 (0.00-0.10); IMMATURE GRAN PERCENT AUTO 1 % (0-1); LYMPHOCYTES ABSOLUTE AUTO 1.07 K/mm3 (0.84-5.20); LYMPHOCYTES PERCENT AUTO 14 % (21-46); MONOCYTES ABSOLUTE AUTO 0.73 K/mm3 (0.16-1.47); MONOCYTES PERCENT AUTO 10 % (4-13); Mean Corpuscular HGB 30.5 pg (26.0-34.0); Mean Corpuscular HGB Conc 33.2 g/dL (31.5-36.5); Mean Corpuscular Volume 92 fL (80-100); Mean Platelet Volume 12.8 fL (9.1-12.4); NEUTROPHILS ABSOLUTE AUTO 5.49 K/mm3 (1.96-9.15); NEUTROPHILS PERCENT AUTO 74 % (41-73); Platelet Count 134 K/mm3 (150-400); RDW Coefficient Variation 12.1 % (11.7-14.2); RDW Standard Deviation 41.1 fL (35.1-46.3); Red Blood Cell Count 2.49 M/mm3 (4.30-5.90); White Blood Cell Count 7.44 K/mm3 (4.00-11.30)
--- NOTE | 2023-02-21 05:07 | NUR ---
SHIFT SUMMARY POD 2 R HIP NAILING. INCISION SITE X3 C/D/I. A&O X4. PT ON 2L NC AT NIGHT PRN TO MAINTAIN SAT >92%. VS WNL FOR PT. USES URINAL INDEPENDENTLY. PT STATES PAIN WITHIN ACCEPTABLE LIMITS, MEDICATED PER EMAR. BED IN LOWEST POSITION, CALL LIGHT WITHIN REACH, WILL REPORT TO NOC NURSE.
[2023-02-21 05:26] LABS: Albumin, Blood 2.5 g/dL (3.4-5.0); Anion Gap 6 mmol/L (6-16); Blood Urea Nitrogen 48 mg/dL (8-24); Bun/Creatinine Ratio 22.4 (12.0-20.0); CO2, Blood 26 mmol/L (21-32); Chloride, Blood 104 mmol/L (98-108); Creatinine, Blood 2.14 mg/dL (0.60-1.20); Glomerular Filtration Rate 31 (60-); Glucose, Blood 171 mg/dL (70-99); Phosphorus, Blood 3.7 mg/dL (2.5-4.9); Potassium, Blood 3.8 mmol/L (3.5-5.5); Sodium, Blood 136 mmol/L (136-145)
[2023-02-21 07:06] VITALS: BP 95/61
[2023-02-21 07:07] VITALS: BP 95/54
[2023-02-21 10:58] LABS: Hematocrit 24.3 % (37.0-53.0); Hemoglobin 7.9 g/dL (13.5-17.5)
--- NOTE | 2023-02-21 11:45 | NUR ---
Pt. is awake in bed and welcomed my visit. Pt. is pleasant. Facilitated a life review. Listened with empathy and interest as the Pt. verbalized about his families immigration from [place] after WW[place]. Pt. displayed evidence of comfort snd peace. Considered matters of holly and belief. Prayed with Pt. Pt. vebrlaized gratitude for spiritual care visit.
[2023-02-21 12:34] LABS: SARS-Cov-2 (COVID-19) PCR, MMC NEGATIVE (NEGATIVE)
--- NOTE | 2023-02-21 14:10 | NUR ---
DISCHARGE NOTE: PATIENT IS GOING TO BE TRANSFERRED TO [facility] ON A GURNEY AT 1430. THIS NURSE JUST GAVE REPORT TO SHELBY ROSADO AT [facility] AND AFTER GIVING REPORT SHE HAD NO OTHER QUESTIONS AT THIS TIME. PAIN IS MANAGED WITH PO TYLENOL AND TRAMADOL. HIS RIGHT HIP HAS X3 AQUACEL C/D/I. DENIES NUMBNESS OR TINGLING IN ALL EXTREMITIES. HE IS TOLERATING PO INTAKE AND IS VOIDING WELL PASSING GAS. HE IS SITTING IN THE RECLINER WITH CALL LIGHT IN REACH AND AT BEDSIDE AWAITING FOR TRANSPORT TO COME AT 1430 TO TAKE HIM TO [facility]. HARD PERSCRIPTIONS ARE IN THE FOLDER FOR TRANSPORT.
--- NOTE | 2023-02-21 14:33 | NUR ---
TRANSPORT ARRIVED AND MOVED THE PATIENT TO [facility]. FOLDER WAS GIVEN TO TRANSPORTERS. PERSONAL ITEMS IN THE ROOM WERE GATHERED AND AT BEDSIDE HAS HIS ITEMS WITH HER. PATIENT IS NOW ON HIS WAY TO [facility] WITH TRANSPORT.
== END 2023-02-21 14:36 | DRG 481 ==
LOC: ER 12:36 → SURS 14:17
PROVIDERS: Emergency Medicine; Orthopaedic Surgery; ADMIT Family Medicine
PROC: 0QS604Z Reposition Right Upper Femur with Internal Fixation Device, Open Approach (ICD-10-PCS; principal; 2023-02-19 14:00)
DX: S72.21XA Displaced subtrochanteric fracture of right femur, initial encounter for closed fracture (principal); I13.0 Hypertensive heart and chronic kidney disease with heart failure and stage 1 through stage 4 chronic kidney disease, or unspecified chronic kidney disease; E11.22 Type 2 diabetes mellitus with diabetic chronic kidney disease; M10.9 Gout, unspecified; M19.90 Unspecified osteoarthritis, unspecified site; I48.91 Unspecified atrial fibrillation; G47.33 Obstructive sleep apnea (adult) (pediatric); E78.5 Hyperlipidemia, unspecified; I50.9 Heart failure, unspecified; Z96.653 Presence of artificial knee joint, bilateral; D63.1 Anemia in chronic kidney disease; D69.6 Thrombocytopenia, unspecified; F17.210 Nicotine dependence, cigarettes, uncomplicated; W01.0XXA Fall on same level from slipping, tripping and stumbling without subsequent striking against object, initial encounter; Z20.822 Contact with and (suspected) exposure to COVID-19; Z79.899 Other long term (current) drug therapy; Z79.4 Long term (current) use of insulin; Z79.84 Long term (current) use of oral hypoglycemic drugs; Z86.73 Personal history of transient ischemic attack (TIA), and cerebral infarction without residual deficits; Z79.01 Long term (current) use of anticoagulants; Z87.442 Personal history of urinary calculi; Z95.810 Presence of automatic (implantable) cardiac defibrillator; Z98.890 Other specified postprocedural states; Z91.199 Patient's noncompliance with other medical treatment and regimen due to unspecified reason
CPT/HCPCS: 36415; 72170; 73552; 73590; 80048; 80069; 82947; 83735; 85014; 85018; 85025; 86850; 86900; 86901; 93005; 93010; 94762; 96374; 97110; 97162; 97166; 97530; 99284-25; A9270; C1713; C1769; J0690; J1100; J1815; J2270; J2371; J2405; J2704; J3010; J3370; J3480; J7040; J7120; U0002

== ENCOUNTER 2023-04-16 18:51 | Observation (INO) | payer MEDICARE, BC ==
[~2023-04-16] VITALS: Ht 188 cm; Wt 115.5 kg
[~2023-04-16 18:51] MED LIST changes: +CARBLEV25 SL; +CATAPRES0.1 MG PO; +GUAI600T33 PO; +JARDIANCE25 MG PO
[2023-04-16] MEDS ORDERED: Acetaminophen325 M1 PO (19:24)
[2023-04-16] MEDS ORDERED: BUME1 PO (19:27)
[2023-04-16 19:42] LABS: BASOPHILS ABSOLUTE AUTO 0.03 K/mm3 (0.00-0.23); BASOPHILS PERCENT AUTO 1 % (0-2); EOSINOPHILS ABSOLUTE AUTO 0.14 K/mm3 (0.00-0.68); EOSINOPHILS PERCENT AUTO 2 % (0-6); Hematocrit 42.8 % (37.0-53.0); Hemoglobin 12.6 g/dL (13.5-17.5); IMMATURE GRAN ABSOLUTE AUTO 0.03 K/mm3 (0.00-0.10); IMMATURE GRAN PERCENT AUTO 1 % (0-1); LYMPHOCYTES ABSOLUTE AUTO 0.71 K/mm3 (0.84-5.20); LYMPHOCYTES PERCENT AUTO 12 % (21-46); MONOCYTES ABSOLUTE AUTO 0.57 K/mm3 (0.16-1.47); MONOCYTES PERCENT AUTO 10 % (4-13); Mean Corpuscular HGB 28.4 pg (26.0-34.0); Mean Corpuscular HGB Conc 29.4 g/dL (31.5-36.5); Mean Corpuscular Volume 97 fL (80-100); Mean Platelet Volume 12.4 fL (9.1-12.4); NEUTROPHILS ABSOLUTE AUTO 4.41 K/mm3 (1.96-9.15); NEUTROPHILS PERCENT AUTO 75 % (41-73); Platelet Count 183 K/mm3 (150-400); RDW Coefficient Variation 13.9 % (11.7-14.2); RDW Standard Deviation 49.1 fL (35.1-46.3); Red Blood Cell Count 4.43 M/mm3 (4.30-5.90); White Blood Cell Count 5.89 K/mm3 (4.00-11.30)
[2023-04-16 20:09] LABS: Albumin, Blood 3.4 g/dL (3.4-5.0); Albumin/Globulin Ratio 0.9 (0.8-1.8); Bilirubin, Total 0.4 mg/dL (0.1-1.0); Bun/Creatinine Ratio 16.6 (12.0-20.0); Creatinine, Blood 1.63 mg/dL (0.60-1.20); Globulin, Blood 3.6 g/dL (2.2-4.0); Potassium, Blood 4.8 mmol/L (3.5-5.5)
[2023-04-16 20:42] LABS: Base Excess Venous 9.3 mmol/L; PCO2 Venous 81.1 mmHg (38-42); pH Blood Venous 7.26 (7.34-7.37)
[2023-04-16 23:32] LABS: Influenza A, PCR NEGATIVE (NEGATIVE); Influenza B, PCR NEGATIVE (NEGATIVE); Resp Syncytial Virus, PCR NEGATIVE (NEGATIVE)
[2023-04-16 23:34] VITALS: BP 104/91
--- NOTE | 2023-04-16 23:45 | NUR ---
ARRIVAL TO PCU 19 PT ARRIVED TO PCU 19 AT APPROXIMATELY 2325 WITH AT BEDSIDE. PT SLID OVER FROM ER GURNEY TO HOSPITAL BED BY 4 CLINICAL STAFF MEMBERS. PT A&Ox4 COMMUNICATING NEEDS, FOLLOWING DIRECTION, AND COOPERATING WITH CARE APPROPRIATELY; THOUGH IS MAKING ODD STATEMENTS. ORIENTED TO CALL LIGHT/UNIT, PT ARRIVED ON 5L VIA NC, SpO2> 92%. RT TO BEDSIDE TO SET UP AND PLACE PT ON CPAP; PT DENIES SOB. BP STABLE, AFIB 80's, DENIES CP/PRESSURE. CONTINENT OF URINE, USES URINAL AT BEDSIDE WITH ASSISTANCE. BED IN LOWEST POSITION, BED ALARM ON & CALL LIGHT IN REACH.
[2023-04-17 00:10] LABS: SARS-Cov-2 (COVID-19) PCR, MMC POSITIVE (NEGATIVE)
[2023-04-17] MEDS ORDERED: BUME1 PO (01:10)
[2023-04-17] MEDS ORDERED: TRAM50 PO (01:16)
[2023-04-17 01:17] LABS: Base Excess Venous 10.6 mmol/L; PCO2 Venous 42.9 mmHg (38-42)
[2023-04-17 01:33] LABS: BASOPHILS ABSOLUTE AUTO 0.02 K/mm3 (0.00-0.23); BASOPHILS PERCENT AUTO 0 % (0-2); EOSINOPHILS ABSOLUTE AUTO 0.16 K/mm3 (0.00-0.68); EOSINOPHILS PERCENT AUTO 3 % (0-6); Hematocrit 38.9 % (37.0-53.0); Hemoglobin 11.5 g/dL (13.5-17.5); IMMATURE GRAN ABSOLUTE AUTO 0.02 K/mm3 (0.00-0.10); IMMATURE GRAN PERCENT AUTO 0 % (0-1); LYMPHOCYTES ABSOLUTE AUTO 0.85 K/mm3 (0.84-5.20); LYMPHOCYTES PERCENT AUTO 13 % (21-46); MONOCYTES PERCENT AUTO 8 % (4-13); Mean Corpuscular HGB 28.3 pg (26.0-34.0); Mean Corpuscular HGB Conc 29.6 g/dL (31.5-36.5); Mean Corpuscular Volume 96 fL (80-100); Mean Platelet Volume 12.5 fL (9.1-12.4); NEUTROPHILS ABSOLUTE AUTO 4.86 K/mm3 (1.96-9.15); NEUTROPHILS PERCENT AUTO 76 % (41-73); Platelet Count 164 K/mm3 (150-400); RDW Coefficient Variation 14.1 % (11.7-14.2); RDW Standard Deviation 48.2 fL (35.1-46.3); Red Blood Cell Count 4.07 M/mm3 (4.30-5.90); White Blood Cell Count 6.41 K/mm3 (4.00-11.30)
[2023-04-17 01:57] LABS: Albumin, Blood 3.1 g/dL (3.4-5.0); Albumin/Globulin Ratio 0.9 (0.8-1.8); Bilirubin, Total 0.4 mg/dL (0.1-1.0); Calcium, Blood 8.2 mg/dL (8.5-10.1); Creatinine, Blood 1.69 mg/dL (0.60-1.20); Globulin, Blood 3.3 g/dL (2.2-4.0); Potassium, Blood 4.1 mmol/L (3.5-5.5); Total Protein, Blood 6.4 g/dL (6.4-8.2)
[2023-04-17 02:18] VITALS: BP 138/105
[2023-04-17 03:19] VITALS: BP 157/121
--- NOTE | 2023-04-17 05:17 | NUR ---
SHIFT SUMMARY SEE PREVIOUS NOTE. PT A&Ox4 COMMUNICATING NEEDS, FOLLOWING DIRECTION, AND COOPERATING WITH CARE APPROPRIATELY; THOUGH IS MAKING ODD STATEMENTS. AT TIMES, PT USES CALL LIGHT, SOMETIMES PT TAKES BIPAP AND SpO2 MONITOR OFF. SpO2> 92% ON BIPAP 05/02, USING 5L VIA NC DURING SHORT BREAKS, DENIES SOB. BP STABLE, AFIB 80's, DENIES CP/PRESSURE. CONTINENT OF URINE, USES URINAL AT BEDSIDE WITH ASSISTANCE. BED ALARM ON. NO OTHER EVENTS, WILL REPORT TO ONCOMING RN.
[2023-04-17 06:53] LABS: Base Excess Venous 10.9 mmol/L; Bicarbonate Venous 32.4 mmol/L (24.0-30.0); PCO2 Venous 57.9 mmHg (38-42)
[2023-04-17 06:54] VITALS: BP 150/130
--- NOTE | 2023-04-17 07:27 | NUR ---
Received in room report from Ramon ROSADO. Patient awake and was on CPAP and RT in room placing him on 2L O2 via NC and sats >90% when in nares. He is mostly alert and oriented and is able to communicate his needs. He is currently NPO and will call and get order to start feeding. He has 20 ga IV in RAC and is flushed and SL'd.He has urinal at bedside and uses independnetly. PT/OT orders placed for mobility. ADA diet obtained from Dr Britton.
--- NOTE | 2023-04-17 11:30 | NUR ---
PT/OT has worked with patient and is up in chair with alarm. He has called appropriately. He is on 2L O2 via NC and sats >94%. He is still mostly alert and has some minir confusing statements. called and checked on him and will be in later. He has tolerate ADA diet and meds without difficulty. He is independent with positioning for comfort. He denies any current needs. Infection control stated he can come out of isolation.
[2023-04-17 12:16] VITALS: BP 163/123
[2023-04-17] MEDS ORDERED: JARDIANCE10 MG PO (13:53)
[2023-04-17] MEDS ORDERED: Amlodipine Bes2.5 MG PO (14:00)
--- NOTE | 2023-04-17 15:38 | NUR ---
Patient went back to bed with one full assist. PT malvin and worked with him in bed as he has already has done his weight bearing today. He is got orders to go back tpo [facility] at 1615 today. is at bedside. ABX infusing currently and will check and cover CBG before leaving.
--- NOTE | 2023-04-17 18:03 | NUR ---
Patient is up in chair and is ready for transfer to [facility]. He is dressed. Report has been called and transport will be here at 1845. Patient remains on 2L O2 via NC and sats >90%. He is transferring with walker and full assist. CBG was covered with 2 units insulin. has gone home briefly.
== END 2023-04-17 19:21 ==
LOC: ER 18:51 → PCU 18:52
PROVIDERS: Family Medicine; Student in an Organized Health Care Education/Training Program; ADMIT Internal Medicine
DX: G93.49 Other encephalopathy (principal); R41.82 Altered mental status, unspecified; J96.92 Respiratory failure, unspecified with hypercapnia; J96.91 Respiratory failure, unspecified with hypoxia; I48.91 Unspecified atrial fibrillation; U07.1 COVID-19; E11.22 Type 2 diabetes mellitus with diabetic chronic kidney disease; I13.0 Hypertensive heart and chronic kidney disease with heart failure and stage 1 through stage 4 chronic kidney disease, or unspecified chronic kidney disease; N18.30 Chronic kidney disease, stage 3 unspecified; I50.32 Chronic diastolic (congestive) heart failure; E78.5 Hyperlipidemia, unspecified; Z79.84 Long term (current) use of oral hypoglycemic drugs
CPT/HCPCS: 0241U; 36415; 70450; 71045; 80053; 82803; 82947; 83880; 84145; 84484; 85025; 93005; 93010; 94640; 94660; 94664; 94762; 96365; 96366; 96367; 96372; 96375; 97110; 97116; 97162; 97166; 97530; 97535; 99285-25; A9270; C9399; G0008; G0378; J0248; J0456; J0696; J1650; J1940; J7050; Q2036

== ENCOUNTER 2023-04-18 10:13 | Emergency (ER) | payer MEDICARE, BC ==
[~2023-04-18] VITALS: Ht 182.9 cm; Wt 108.9 kg
[~2023-04-18 10:13] MED LIST changes: +Acetaminophen325 M1 PO; +Amlodipine Bes2.5 MG PO; +BUME1 PO
[2023-04-18 10:47] LABS: BASOPHILS ABSOLUTE AUTO 0.02 K/mm3 (0.00-0.23); BASOPHILS PERCENT AUTO 0 % (0-2); EOSINOPHILS ABSOLUTE AUTO 0.04 K/mm3 (0.00-0.68); EOSINOPHILS PERCENT AUTO 1 % (0-6); Hematocrit 39.1 % (37.0-53.0); Hemoglobin 11.9 g/dL (13.5-17.5); IMMATURE GRAN ABSOLUTE AUTO 0.04 K/mm3 (0.00-0.10); IMMATURE GRAN PERCENT AUTO 1 % (0-1); LYMPHOCYTES ABSOLUTE AUTO 0.87 K/mm3 (0.84-5.20); LYMPHOCYTES PERCENT AUTO 12 % (21-46); MONOCYTES ABSOLUTE AUTO 0.62 K/mm3 (0.16-1.47); MONOCYTES PERCENT AUTO 9 % (4-13); Mean Corpuscular HGB 28.4 pg (26.0-34.0); Mean Corpuscular HGB Conc 30.4 g/dL (31.5-36.5); Mean Corpuscular Volume 93 fL (80-100); Mean Platelet Volume 12.1 fL (9.1-12.4); NEUTROPHILS ABSOLUTE AUTO 5.43 K/mm3 (1.96-9.15); NEUTROPHILS PERCENT AUTO 77 % (41-73); Platelet Count 171 K/mm3 (150-400); RDW Coefficient Variation 14.3 % (11.7-14.2); RDW Standard Deviation 48.2 fL (35.1-46.3); Red Blood Cell Count 4.19 M/mm3 (4.30-5.90); White Blood Cell Count 7.02 K/mm3 (4.00-11.30)
[2023-04-18 11:27] LABS: Alanine Aminotransfer (ALT/SGP 8 U/L (12-78); Albumin, Blood 3.4 g/dL (3.4-5.0); Alk Phos 110 U/L (50-136); Anion Gap Unable to Calculate mmol/L (6-16); Aspartate Aminotrans (AST/SGOT 11 U/L (12-37); Bilirubin, Total 0.4 mg/dL (0.1-1.0); Blood Urea Nitrogen 33 mg/dL (8-24); Bun/Creatinine Ratio 18.8 (12.0-20.0); CO2, Blood 39 mmol/L (21-32); Calcium, Blood 8.9 mg/dL (8.5-10.1); Chloride, Blood 109 mmol/L (98-108); Creatinine, Blood 1.76 mg/dL (0.60-1.20); Globulin, Blood 3.4 g/dL (2.2-4.0); Glomerular Filtration Rate 39 (60-); Glucose, Blood 135 mg/dL (70-99); Potassium, Blood 4.3 mmol/L (3.5-5.5); Sodium, Blood 146 mmol/L (136-145); Total Protein, Blood 6.8 g/dL (6.4-8.2)
[2023-04-18 15:14] VITALS: BP 145/94
== END 2023-04-18 16:00 | disposition home or self-care (01) ==
LOC: ER 10:13
PROVIDERS: Emergency Medicine
DX: U07.1 COVID-19 (principal); S72.91XG Unspecified fracture of right femur, subsequent encounter for closed fracture with delayed healing; I13.0 Hypertensive heart and chronic kidney disease with heart failure and stage 1 through stage 4 chronic kidney disease, or unspecified chronic kidney disease; E11.22 Type 2 diabetes mellitus with diabetic chronic kidney disease; I50.32 Chronic diastolic (congestive) heart failure; N18.30 Chronic kidney disease, stage 3 unspecified; I48.91 Unspecified atrial fibrillation; G47.33 Obstructive sleep apnea (adult) (pediatric); Z79.4 Long term (current) use of insulin; Z79.84 Long term (current) use of oral hypoglycemic drugs; Z79.899 Other long term (current) drug therapy; Z79.01 Long term (current) use of anticoagulants; Z91.199 Patient's noncompliance with other medical treatment and regimen due to unspecified reason; W18.30XD Fall on same level, unspecified, subsequent encounter
CPT/HCPCS: 71045; 80053; 82947; 85025; 99283-25

== ENCOUNTER → 2023-06-07 | Outpatient (CLI) | payer MEDICARE, BC ==
[2023-06-07 18:05] LABS: Bun/Creatinine Ratio 23.7 (12.0-20.0); Calcium, Blood 8.4 mg/dL (8.5-10.1); Creatinine, Blood 1.56 mg/dL (0.60-1.20); Potassium, Blood 4.2 mmol/L (3.5-5.5)
== END ==
LOC: LAB SHORT 15:38 → LAB 15:38
PROVIDERS: Family Medicine
DX: N18.31 Chronic kidney disease, stage 3a (principal)
CPT/HCPCS: 80048

== ENCOUNTER → 2024-04-07 | Outpatient (CLI) | payer MEDICARE, BC ==
[2024-04-10 14:21] LABS: CORTISOL,U FREE - RATIO TO CRT 19.49 ug/g CRT; CORTISOL,URINE FREE - PER 24H 36.8 ug/d (<=60.0); CREATININE,URINE - PER 24H 1888 mg/d (800-2100); CREATININE,URINE - PER VOLUME 59 mg/dL; HOURS COLLECTED 24 hr; TOTAL VOLUME 3200 mL
== END | disposition home or self-care (01) ==
LOC: LAB 08:00 → LAB SHORT 08:00 → LAB FUT 03-31 11:25
PROVIDERS: Internal Medicine Nephrology
DX: N18.4 Chronic kidney disease, stage 4 (severe) (principal); D63.1 Anemia in chronic kidney disease; N25.81 Secondary hyperparathyroidism of renal origin; E55.9 Vitamin D deficiency, unspecified; E29.1 Testicular hypofunction; R76.9 Abnormal immunological finding in serum, unspecified; R94.5 Abnormal results of liver function studies; R94.6 Abnormal results of thyroid function studies
CPT/HCPCS: 81050; 82530